=== PATIENT | male | born 1995 | race Caucasian/White ===

== ENCOUNTER 2021-04-30 08:06 | Emergency (ER) | payer OTHER ==
[2021-04-30 09:06] LABS: BLOOD UREA NITROGEN,BUN 8 mg/dL (7.0-18.0); CARBON DIOXIDE,CO2 23.9 mmol/L (21.0-32.0); CHLORIDE,CL 102 mmol/L (98-107); GLUCOSE RANDOM 122 mg/dL (74-106); POTASSIUM,K 3.6 mmol/L (3.5-5.1); SODIUM,NA 138 mmol/L (136-148)
[2021-04-30] MEDS ORDERED: Lactated Ringers 1,000 ML IV STA (09:12)
[2021-04-30 09:33] LABS: CORONAVIRUS COVID-19 NAA NEGATIVE (NEGATIVE); INFLUENZA A NAA POSITIVE (NEGATIVE); INFLUENZA B NAA NEGATIVE (NEGATIVE)
== END 2021-04-30 10:17 | disposition home or self-care (01) ==
LOC: MW.ED 08:06
DX: R19.7 Diarrhea, unspecified (principal); J10.1 Influenza due to other identified influenza virus with other respiratory manifestations; R74.01 Elevation of levels of liver transaminase levels; Z20.822 Contact with and (suspected) exposure to COVID-19
CPT/HCPCS: 0240U; 36415; 71045; 80053; 80143; 83735; 85025; 86308; 93005; 99284; J7120